=== PATIENT | male | born 1930 | race Caucasian/White ===

== ENCOUNTER → 2017-01-09 | Day surgery (SDC) | payer MEDICARE ==
[~2017-01-09] MED LIST: AMLO5TAB22 PO; B-COTAB41 PO; BUPIVACAINE/EPINEPHRINE 0.25% 50 ML VIAL ONE; CALC600T34 PO; CITA20TA4 PO; COBA1000 SL; DIVA250ER PO; FOLI400T30 PO; GABA300C3 PO; GLUCTAB6 PO; GRAP100C PO; IRON27TA PO; LACTATED RINGER'S 1000 ML INJ 1,000 ML ONE; LIDOCAINE 1%/EPINEPHrine 1:100,000 SOLN 50 ML VIAL ONE; LORTA5 PO; NORC7.5T PO; OCUVCAP2 PO; PROPOFOL 500 MG/50 ML BTL IV ONE; RED600TA PO; RESP: ALBUTEROL 2.5 MG/3 ML NEB (SCH) ONE; RESP: SODIUM CHLORIDE 0.9% 5 ML NEB ONE; SPIRCAP INH; TYLE500T PO; VANCOMYCIN HCL 1000 MG VIAL ONE; VITA100017 PO; ceFAZolin INJ 1,000 MG VIAL ONE
--- NOTE | 2017-01-09 15:03 | TN ---
cc: TAMARA WOLFE DATE OF SURGERY: January 09, 2017 PREOPERATIVE DIAGNOSIS 1. Failed neurostimulator pulse generator. 2. Status post T10-T11 spinal cord stimulation by Dr. Glasgow in [place], [place] in 2010. 3. Status post lumbar laminectomy syndrome. 4. Chronic pain syndrome. POSTOPERATIVE DIAGNOSIS 1. Failed neurostimulator pulse generator. 2. Status post T10-T11 spinal cord stimulation by Dr. Glasgow in [place], [place] in 2010. 3. Status post lumbar laminectomy syndrome. 4. Chronic pain syndrome. PROCEDURE Revision of implanted spinal neuro pulse generator. SURGEON Paulino Wolfe MD LENS EDGE GRINDER MACHINE REKHA Puente SPECIMEN None. ESTIMATED BLOOD LOSS None. COMPLICATIONS None. ANESTHESIA TIVA, local. CONDITION Stable. PLAN OF ACTIVITY Per orders. PROCEDURE My assistant program manager REKHA Puente was present for the entire surgical case. She was medically necessary for the entire case because of the complexity of the case and to facilitate the performance of the procedure. The FAMILY PRACTICE NURSE PRACTITIONER at the back table was not a skill set for this case to manipulate the instruments, e.g., the multiple different types of soft tissue retractors, lead implants, previous neuro pulse generator and the new neuro pulse generator. The patient was brought in the operating room and had satisfactory anesthesia by Dr. Celeste, the Department of Anesthesia. The patient initially positioned himself in a prone position and then provided TIVA anesthesia. The thoracic spine, lumbar spine and posterior pelvis was all prepped and draped in usual sterile manner. 20 ccs of 0.25% Marcaine, epinephrine was used to infiltrate the operative site. This was in the left flank area between the posterior iliac crest and posterior rib cage. Careful dissection was made. The scar tissue was removed. Using Metzenbaum scissors careful dissection was carried down to subcutaneous tissue. The wires were implanted both dorsally and ventrally over the neuro pulse generator. Meticulous dissection was made in order not to damage these wires and leads. The previous neuro pulse generator was removed. A new pulse generator was inserted. This was the battery that the patient and his decided they wanted to work best for him. Leads 1 through 8 showed 100% contact, leads 9 through 16 showed good contact 3 to 4 of the leads. It was felt that it could be because of positioning of the paddle lead on the spinal cord could be explanatory. The neuro pulse generator was then placed into the wound in the preexisting pocket. It was irrigated with copious amounts of sterile saline antibiotic solution. Wound itself was dry. The wound was closed in routine layers using 0-Vicryl and 2-0 Vicryl and skin was approximated with running subcuticular 3-0 Vicryl. Dermabond was placed over the incision. The patient tolerated the procedure well and arrived in the recovery room in stable and satisfactory condition. MD VIVIANE Mendes/SPEEDY /1:50 PM /2:43 PM
== END | disposition home or self-care (01) ==
LOC: ESDC 11:20
PROVIDERS: ATTEND Orthopaedic Surgery Orthopaedic Surgery of the Spine
DX: T85.192A Other mechanical complication of implanted electronic neurostimulator of spinal cord electrode (lead), initial encounter (principal); M51.36 Other intervertebral disc degeneration, lumbar region; G89.4 Chronic pain syndrome
CPT/HCPCS: 00300; 63688; 76000; C1767; J0690; J3010; J3370; J7120; J7613